=== PATIENT | male | born 1975 | race Caucasian/White ===

== ENCOUNTER 2017-10-11 10:54 | Emergency (ER) | payer MEDICAID ==
[2017-10-11 10:56] VITALS: BP 175/114; PULSE 100; RESP 22; TEMP 99.9; O2SAT 98
[2017-10-11] MEDS ORDERED: LAMO25TA PO (11:13)
[2017-10-11] MEDS ORDERED: LISI10TA3 PO (11:13)
[2017-10-11] MEDS ORDERED: PALI156P IM (11:13)
[2017-10-11] MEDS ORDERED: FISH500C (11:13)
[2017-10-11] MEDS ORDERED: CARV6.252 PO (11:13)
[2017-10-11] MEDS ORDERED: SENE8.6T (11:13)
[2017-10-11] MEDS ORDERED: FENO160T PO (11:13)
[2017-10-11] MEDS ORDERED: ATOR40TA16 PO (11:13)
--- NOTE | 2017-10-11 11:26 | PD ---
HPI Chief Complaint: Cold / Flu Symptoms Time Seen by Provider: 11:12 Travel History International Travel<30 days: No Contact w/Intl Traveler<30days: No Traveled to known affect area: No History of Present Illness HPI 42-year-old male presents to emergency Department with complaint of headache, body aches, chills, nasal congestion 3 days. Body aches aches mainly associated with mid to lower back pain and bilateral rib cage pain that is worse with deep breathing. Unknown fever. Denies cough, sore throat, chest pain, shortness of breath, nausea, vomiting, abdominal pain. Denies encopresis , incontinence, saddle anesthesias. Denies paresthesias, loss of sensation, decreased range of motion, decreased strength bilateral lower extremities. Denies change in gait. Denies IV drug use or cancer. Denies alcohol use. Reports oral tobacco use. Symptoms are decreased while at rest. Allergies to iodinated contrast, oral and IV dye, sulfa. No one else with similar symptoms. She of asthma, schizoaffective bipolar disorder, and hypertension. Has no other medical complaints. No other modifying factors or associated signs and symptoms. PFSH Past Medical History Asthma: Yes Bipolar Disorder: Yes Cardiovascular Problems: Yes (htn) Hypertension: Yes Schizophrenia: Yes (schizoeffective, bipolar 1 ) Past Surgical History Neurologic Surgery: Yes (plate in neck ) Social History Alcohol Use: No Tobacco Use: No Substance Use: No Allergies-Medications (Allergen,Severity, Reaction): Coded Allergies: Iodinated Contrast- Oral and IV Dye (Verified Allergy, Unknown, 10/11/17) Sulfa (Sulfonamide Antibiotics) (Verified Allergy, Unknown, 10/11/17) Reported Meds & Prescriptions Reported Meds & Active Scripts Active Ibuprofen 800 Mg Tab 800 Mg PO Q6HR PRN Doxycycline Hyclate 100 Mg Cap 100 Mg PO BID 10 Days Reported Senexon-S 8.6-50 mg (Sennosides-Docusate Sodium) 8.6 Mg-50 Mg Tab DAILY Fish Oil ([place]-3 Fatty Acids) 60 Mg-90 Mg-500 Mg Cap Unknown Dose DAILY Lamotrigine 25 Mg Tab 25 Mg PO DAILY Invega Sustenna Inj (Paliperidone Palmitate) 156 Mg/Ml Inj 156 Mg IM Q28D Carvedilol 6.25 Mg Tab 6.25 Mg PO DAILY Lisinopril 10 Mg Tab 10 Mg PO DAILY Fenofibrate 160 Mg Tab 160 Mg PO DAILY Atorvastatin (Atorvastatin Calcium) 40 Mg Tab 40 Mg PO HS Review of Systems Except as stated in HPI: all other systems reviewed are Neg Physical Exam Narrative GENERAL: Well-nourished, well-developed male patient, in no acute distress; afebrile, nontoxic-appearing SKIN: Warm and dry. No rash. HEAD: Atraumatic. Normocephalic. EYES: Pupils equal and round. No scleral icterus. No injection or drainage. ENT: Mucosa pink and moist. No erythema or exudates. No uvular edema. No uvular , palatal, or tonsillar deviation. Airway patent. EARS: Bilateral pinnae and external canals appear within normal limits. Bilateral tympanic membranes without erythema, dullness or perforation. NECK: Moving freely. No midline tenderness on palpation of the cervical spine. Active Rotation greater than 45 the left and right. Trachea midline. No lymphadenopathy. CHEST: No reproducible tenderness to bilateral rib cage area; without crepitance or deformity. CARDIOVASCULAR: Regular rate and rhythm. No murmur appreciated. RESPIRATORY: No accessory muscle use. Clear to auscultation. Breath sounds equal bilaterally. No retractions or tachypnea. GASTROINTESTINAL: Abdomen soft, non-tender, nondistended. Hepatic and splenic margins not palpable. Bowel sounds are active 4 quadrants. MUSCULOSKELETAL: Bilateral lower extremities supple and non-tense with 2+ pedal pulses and sensory intact; with full range of motion and 5/5 strength. Active dorsiflexion and extension of bilateral feet. Bilateral straight leg raise is negative for low back pain. Ambulatory in room with normal gait. Sitting up in bed at 90. No obvious deformities. No clubbing. No cyanosis. No edema. BACK: No midline point tenderness on palpation of the lumbar spine. No reproducible tenderness on palpation to bilateral musculature of the entire back. No obvious deformities. NEUROLOGICAL: Awake and alert. Oriented 3. No obvious cranial nerve deficits. Motor grossly within normal limits. Normal speech. Moves all extremities. 5/5 strength to all extremities. PSYCHIATRIC: Appropriate mood and affect; insight and judgment normal. Data Data Last Documented VS Vital Signs Date Time Temp Pulse Resp B/P (MAP) Pulse Ox O2 Delivery O2 Flow Rate FiO2 10/11/17 14:30 10/11/17 13:08 101.6 90 20 96 Room Air Orders Orders Basic Metabolic Panel (Bmp) (10/11/17 11:27) Complete Blood Count With Diff (10/11/17 11:27) Iv Access Insert/Monitor (10/11/17 11:27) Sodium Chlor 0.9% 1000 Ml Inj (Ns 1000 M (10/11/17 11:27) Sodium Chloride 0.9% Flush (Ns Flush) (10/11/17 11:30) Chest, Single Ap (10/11/17 11:27) Ketorolac Inj (Toradol Inj) (10/11/17 11:30) Influenzae A/B Antigen (10/11/17 11:27) Acetaminophen (Tylenol) (10/11/17 13:15) Ed Discharge Order (10/11/17 13:32) Labs Laboratory Tests Test 10/11/17 12:02 White Blood Count 10.2 TH/MM3 Red Blood Count 4.10 MIL/MM3 Hemoglobin 12.6 GM/DL Hematocrit 35.8 % Mean Corpuscular Volume 87.2 FL Mean Corpuscular Hemoglobin 30.7 PG Mean Corpuscular Hemoglobin Concent 35.2 % Red Cell Distribution Width 12.8 % Platelet Count 200 TH/MM3 Mean Platelet Volume 7.1 FL Neutrophils (%) (Auto) 92.1 % Lymphocytes (%) (Auto) 5.0 % Monocytes (%) (Auto) 2.5 % Eosinophils (%) (Auto) 0.3 % Basophils (%) (Auto) 0.1 % Neutrophils # (Auto) 9.3 TH/MM3 Lymphocytes # (Auto) 0.5 TH/MM3 Monocytes # (Auto) 0.3 TH/MM3 Eosinophils # (Auto) 0.0 TH/MM3 Basophils # (Auto) 0.0 TH/MM3 CBC Comment DIFF FINAL Differential Comment Blood Urea Nitrogen 17 MG/DL Creatinine 1.22 MG/DL Random Glucose 96 MG/DL Calcium Level 9.0 MG/DL Sodium Level 140 MEQ/L Potassium Level 4.1 MEQ/L Chloride Level 104 MEQ/L Carbon Dioxide Level 29.9 MEQ/L Anion Gap 6 MEQ/L Estimat Glomerular Filtration Rate 65 ML/MIN MDM Medical Decision Making Medical Screen Exam Complete: Yes Emergency Medical Condition: Yes Medical Record Reviewed: Yes Differential Diagnosis Pneumonia, influenza, viral illness Narrative Course 42-year-old male with cold/flu symptoms 3 days. Patient has low-grade fever of 99.9 in the ER. Nontoxic-appearing. Denies chest pain or shortness of breath. I discussed the patient with my attending physician, Dr. Stringer, and he agrees with my plan of care. CBC, BMP, IV fluid bolus, chest x-ray, influenza, Toradol ordered. 1239: Rest x-ray concludes: No acute disease. CBC unremarkable. No leukocytosis but Left shift noted with neutrophils 92. Influenza negative. 1309: Temp 101.6. Tylenol ordered. BMP unremarkable. 1321: I discussed the patient with Dr. Stringer and he recommended doxycycline for home. Doxycycline prescribed for home. Instructed patient to follow up with primary care provider. Patient verbalizes understanding and agreement with treatment plan. Patient is medically cleared and stable for discharge. Discussed reasons to return to the emergency department. Patient agrees with treatment plan. The patients vital signs are stable and the patient is stable for outpatient follow-up and treatment. Patient discharged home, stable and in no acute distress. Diagnosis Primary Impression: URI (upper respiratory infection) Qualified Codes: J06.9 - Acute upper respiratory infection, unspecified Referrals: Primary Care Physician Patient Instructions: Cold Symptoms (ED), General Instructions, Safe Use of Cough and Cold Medicines (ED), Upper Respiratory Infection (ED) Additional Instructions: Ibuprofen or Tylenol as directed and as needed to reduce fever; may alternate ibuprofen and Tylenol as needed every 3 hours to minimize fever [id number] cold/flu medications as directed and as needed for symptom management Get plenty of sleep/rest Drink plenty of fluids to prevent dehydration; such as Gatorade, Powerade, Pedialyte [place] diet to encourage nutrition such as crackers, fruit, applesauce, toast, soup etc. Use an air humidifier/turn off ceiling fans Follow-up with your primary care provider within 1 day Return immediately to the emergency department with worsening of symptoms Med/Other Pt SpecificInfo: Prescription(s) given Scripts Ibuprofen (Ibuprofen) 800 Mg Tab 800 MG PO Q6HR Y for PAIN, #30 TAB 0 Refills Prov: Mela Garcia 10/11/17 Doxycycline Hyclate (Doxycycline Hyclate) 100 Mg Cap 100 MG PO BID for Infection for 10 Days, #20 CAP 0 Refills Prov: Mela Garcia 10/11/17 Disposition: 01 DISCHARGE HOME Condition: Stable Mela Garcia Oct 11, 2017 11:26
[2017-10-11] MEDS ORDERED: SODIUM CHLOR 0.9% 1000 ML INJ 1,000 ML IV SCH (11:27)
[2017-10-11] MEDS ORDERED: KETOROLAC TROMETHAMINE 30 MG/ML (IVP) VIAL IVP ONE (11:30)
[2017-10-11] MEDS ORDERED: SODIUM CHLORIDE 0.9% FLUSH 10 ML FLUSH IV FLUSH PRN (11:30)
[2017-10-11 12:23] LABS: AUTOMATED NEUTROPHIL # 9.3 TH/MM3 (1.8-7.7); BASOPHIL % 0.1 % (0.0-2.0); EOSINOPHIL % 0.3 % (0.0-4.0); HEMATOCRIT 35.8 % (39.0-51.0); HEMO FLAGS DIFF FINAL; LYMPHOCYTE # 0.5 TH/MM3 (1.0-4.8); MEAN CELL VOLUME 87.2 FL (80.0-100.0); MEAN CORPUSCULAR HEMOGLOBIN 30.7 PG (27.0-34.0); MEAN CORPUSCULAR HGB CONC 35.2 % (32.0-36.0); MONO % 2.5 % (0.0-8.0); NEUT % 92.1 % (16.0-70.0); PLATELET COUNT 200 TH/MM3 (150-450); RED CELL DISTRIBUTION WIDTH 12.8 % (11.6-17.2); WHITE BLOOD COUNT 10.2 TH/MM3 (4.0-11.0)
--- NOTE | 2017-10-11 12:32 | RADRPT ---
EXAM DATE/TIME: 10/11/2017 11:49 [facility] COMPARISON: No previous studies available for comparison. INDICATIONS : Fever, chills, short of breath MEDICAL HISTORY : None. SURGICAL HISTORY : None. ENCOUNTER: Initial ACUITY: 1 day PAIN SCORE: 0/10 LOCATION: Bilateral chest FINDINGS: A single view of the chest demonstrates the lungs to be symmetrically aerated without evidence of mas s, infiltrate or effusion. The cardiomediastinal contours are unremarkable. Osseous structures are intact. CONCLUSION: No acute disease. Adrien Marion MD FACR on October 11, 2017 at 12:30 Board Certified Radiologist. This report was verified electronically.
[2017-10-11 12:51] LABS: BICARBONATE 29.9 MEQ/L (21.0-32.0); POTASSIUM 4.1 MEQ/L (3.5-5.1)
[2017-10-11 13:08] VITALS: PULSE 90; RESP 20; TEMP 101.6; O2SAT 96
[2017-10-11] MEDS ORDERED: ACETAMINOPHEN 325 MG TAB PO ONE (13:15)
[2017-10-11] MEDS ORDERED: DOXY100C PO (13:24)
[2017-10-11] MEDS ORDERED: IBUP1TAB7 PO (13:31)
== END 2017-10-11 14:35 | disposition home or self-care (01) ==
LOC: NEPD 10:54
DX: J06.9 Acute upper respiratory infection, unspecified (principal); M79.1 Myalgia; R68.83 Chills (without fever); I10 Essential (primary) hypertension; Z87.09 Personal history of other diseases of the respiratory system; Z86.59 Personal history of other mental and behavioral disorders
CPT/HCPCS: 71010; 80048; 85025; 87804; 96361; 96374; 99284; J1885; J7030